=== PATIENT | male | born 1970 | race Caucasian/White ===

== ENCOUNTER 2016-12-11 18:42 | Emergency (ER) | payer MEDICARE ==
[2016-12-11] MEDS ORDERED: SODIUM CHLORIDE 0.9% 1,000 ML IV STA (19:37)
[2016-12-11] MEDS ORDERED: ONDANSETRON 4 MG/2 ML VIAL IVP STA (19:37)
[2016-12-11 19:41] VITALS: RESP 16
[2016-12-11 20:25] LABS: Basophils % (A) 1 %; CH 32.5; CHCM 34.7; Eosinophils # (A) 0.2 k/uL (0-0.7); Eosinophils % (A) 4 %; HDW 2.39; HGB 13.2 gm/dL (13.0-17.5); Luc # (Auto) 0.12; Luc % (Auto) 2; Lymphocytes # (A) 1.9 k/uL (1.0-4.8); Lymphocytes % (A) 33 %; MCH 32.7 pg (25.0-35.0); MCHC 34.7 g/dL (31.0-37.0); MCV 94.1 fL (80.0-100.0); Mean Platelet Volume 7.4; Monocytes # (A) 0.3 k/uL (0-1.0); Monocytes % (A) 6 %; Neutrophils # (A) 3.1 k/uL (1.3-7.7); Neutrophils % (A) 55 %; RBC 4.04 m/uL (4.30-5.90); RDW 13.4 % (11.5-15.5); WBC 5.7 k/uL (3.8-10.6); WBC (Perox) 5.62
[2016-12-11 20:34] LABS: ALT 30 U/L (21-72); AST 25 U/L (17-59); Alkaline Phosphatase 74 U/L (38-126); Anion Gap 8 mmol/L; Blood Urea Nitrogen 10 mg/dL (9-20); Calcium 9.1 mg/dL (8.4-10.2); Carbon Dioxide 29 mmol/L (22-30); Chloride 104 mmol/L (98-107); Glucose 87 mg/dL (74-99); Non-African American GFR(MDRD) >60 (>60 ml/min/1.73 sqM); Potassium 4.4 mmol/L (3.5-5.1); Sodium 141 mmol/L (137-145); Total Bilirubin 0.4 mg/dL (0.2-1.3); Total Protein 6.7 g/dL (6.3-8.2)
[2016-12-11 20:38] LABS: INR 1.1 (<1.2); Partial Thromboplastin Time 26.5 sec (22.0-30.0); Prothrombin Time 10.7 sec (9.0-12.0)
--- NOTE | 2016-12-11 20:43 | CT ---
EXAMINATION TYPE: CT brain wo con DATE OF EXAM: 12/11/2016 COMPARISON: NONE HISTORY: Right sided visual disturbance CT DLP: 1180.[address] of the brain was performed. The ventricles, basal cisterns and sulci overlying the cerebral convexities demonstrate a normal appe arance. There is no evidence for intracranial hemorrhage or sulcal effacement. No mass effects are seen. Osseous calvarium is intact. If symptoms persist consider MRI as clinically warranted. IMPRESSION: 1. No acute intracranial process is seen at this time.
[2016-12-11 20:45] LABS: Creatine Kinase 57 U/L (55-170)
[2016-12-11 20:58] LABS: Creatine Kinase MB 0.6 ng/mL (0.0-2.4); Troponin I <0.012 ng/mL (0.000-0.034)
--- NOTE | 2016-12-11 21:41 | ED ---
Neuro HPI - General Chief Complaint: Neuro Symptoms/Deficit Stated Complaint: Hx TIA, FEELS LIKE HE HAD ONE LAST NIGHT Time Seen by Provider: 12/11/16 19:24 Source: patient Mode of arrival: ambulatory Limitations: no limitations - History of Present Illness Is the patient presenting with stroke symptoms?: No Last Known Well Date: 12/10/16 Last Known Well Time: 21:30 Initial Comments: TSH years old male seen Dr. Pham for ongoing care and then later he called [facility] hold him that his right eye was quite blurred and blotchy for about 4 minutes then it cleared up at that point he was told to come to the ER he does have a history of complex medical diseases. Symptoms should resolve to 4 minutes now on arrival he denies any headaches no chest pain or shortness of breath no blurred vision no slurred speech no weakness of upper or lower extremities - Related Data Home Medications: Home Medications Medication Instructions Recorded Confirmed Aspirin 81 mg PO DAILY 12/11/16 12/11/16 Baclofen [Lioresal] 10 mg PO TID 12/11/16 12/11/16 Bio-Med Cream 1 applic TOPICAL DAILY PRN 12/11/16 12/11/16 Butalb/APAP/Caff 50-325-40Mg 1 tab PO DAILY PRN 12/11/16 12/11/16 [Fioricet 50-325-40] Cholecalciferol (Vitamin D3) 4,000 unit PO DAILY 12/11/16 12/11/16 [Vitamin D3] Cyanocobalamin [Vitamin B-12 1,000 mcg SQ WE 12/11/16 12/11/16 Injection] Diazepam [Valium] 5 mg PO BID PRN 12/11/16 12/11/16 Gabapentin 1,200 mg PO HS 12/11/16 12/11/16 Gabapentin 600 mg PO BID 12/11/16 12/11/16 Lidocaine 5% Patch [Lidoderm] 1 patch TOPICAL DAILY 12/11/16 12/11/16 Metoclopramide [Reglan] 5 mg PO TID 12/11/16 12/11/16 Mirtazapine 30 mg PO HS 12/11/16 12/11/16 Morphine Sulfate ER [Ms Contin 30 mg PO TID 12/11/16 12/11/16 30Mg] Morphine Sulfate Ir [Msir] 15 mg PO DAILY PRN 12/11/16 12/11/16 Omeprazole 40 mg PO DAILY 12/11/16 12/11/16 Allergies/Adverse Reactions: Allergies Allergy/AdvReac Type Severity Reaction Status Date / Time No Known Allergies Allergy Verified 12/11/16 19:20 Review of Systems ROS Statement: Those systems with pertinent positive or pertinent negative responses have been documented in the HPI. ROS Other: All systems not noted in ROS Statement are negative. General Exam - General Exam Comments Initial Comments: General: The patient is awake and alert, in no distress, and does not appear acutely ill. GCS is 15 Skin: Skin is warm and dry and no rashes or lesions are noted. Eye: Pupils are equal, round and reactive to light, extra-ocular movements are intact; there is normal conjunctiva bilaterally. Ears, nose, mouth and throat: There are moist mucous membranes and no oral lesions. Neck: The neck is supple, there is no tenderness or JVD. Cardiovascular: There is a regular rate and rhythm. No murmur, rub or gallop is appreciated. Respiratory: To auscultation bilateral, no wheezing no rhonchi no distress respiratory hubbard noticed Gastrointestinal: Soft, non-distended, non-tender abdomen without masses or organomegaly noted. There is no rebound or guarding present. Bowel sounds are unremarkable. Back: There is no tenderness to palpation in the midline. There is no obvious deformity. Musculoskeletal: Normal ROM, no tenderness, There is no pedal edema. There is no calf tenderness or swelling. No cords were appreciated. Neurological: CN II-XII intact, Cranial nerves III through XII are intact. There are no obvious motor or sensory deficits. Coordination appears grossly intact. Speech is normal. Psychiatric: Cooperative, appropriate mood & affect, normal judgment. Limitations: no limitations Stroke MDM - Lab Data Result diagrams: 12/11/16 20:10 12/11/16 20:10 Lab Results 12/11/16 12/11/16 12/11/16 Range/Units 20:10 20:10 20:10 WBC 5.7 (3.8-10.6) k/uL RBC 4.04 L (4.30-5.90) m/uL Hgb 13.2 (13.0-17.5) gm/dL Hct 38.0 L (39.0-53.0) % MCV 94.1 (80.0-100.0) fL MCH 32.7 (25.0-35.0) pg MCHC 34.7 (31.0-37.0) g/dL RDW 13.4 (11.5-15.5) % Plt Count 217 (150-450) k/uL Neutrophils % 55 % Lymphocytes % 33 % Monocytes % 6 % Eosinophils % 4 % Basophils % 1 % Neutrophils # 3.1 (1.3-7.7) k/uL Lymphocytes # 1.9 (1.0-4.8) k/uL Monocytes # 0.3 (0-1.0) k/uL Eosinophils # 0.2 (0-0.7) k/uL Basophils # 0.0 (0-0.2) k/uL PT (9.0-12.0) sec INR (<1.2) APTT (22.0-30.0) sec Sodium 141 (137-145) mmol/L Potassium 4.4 (3.5-5.1) mmol/L Chloride 104 (98-107) mmol/L Carbon Dioxide 29 (22-30) mmol/L Anion Gap 8 mmol/L BUN 10 (9-20) mg/dL Creatinine 0.57 L (0.66-1.25) mg/dL Est GFR (MDRD) Af Amer >60 (>60 ml/min/1.73 sqM) Est GFR (MDRD) Non-Af >60 (>60 ml/min/1.73 sqM) Glucose 87 (74-99) mg/dL Calcium 9.1 (8.4-10.2) mg/dL Total Bilirubin 0.4 (0.2-1.3) mg/dL AST 25 (17-59) U/L ALT 30 (21-72) U/L Alkaline Phosphatase 74 (38-126) U/L Total Creatine Kinase 57 (55-170) U/L CK-MB (CK-2) 0.6 (0.0-2.4) ng/mL CK-MB (CK-2) Rel Index 1.1 Troponin I <0.012 (0.000-0.034) ng/mL Total Protein 6.7 (6.3-8.2) g/dL Albumin 4.1 (3.5-5.0) g/dL 12/11/17 Range/Units 20:10 WBC (3.8-10.6) k/uL RBC (4.30-5.90) m/uL Hgb (13.0-17.5) gm/dL Hct (39.0-53.0) % MCV (80.0-100.0) fL MCH (25.0-35.0) pg MCHC (31.0-37.0) g/dL RDW (11.5-15.5) % Plt Count (150-450) k/uL Neutrophils % % Lymphocytes % % Monocytes % % Eosinophils % % Basophils % % Neutrophils # (1.3-7.7) k/uL Lymphocytes # (1.0-4.8) k/uL Monocytes # (0-1.0) k/uL Eosinophils # (0-0.7) k/uL Basophils # (0-0.2) k/uL PT 10.7 (9.0-12.0) sec INR 1.1 (<1.2) APTT 26.5 (22.0-30.0) sec Sodium (137-145) mmol/L Potassium (3.5-5.1) mmol/L Chloride (98-107) mmol/L Carbon Dioxide (22-30) mmol/L Anion Gap mmol/L BUN (9-20) mg/dL Creatinine (0.66-1.25) mg/dL Est GFR (MDRD) Af Amer (>60 ml/min/1.73 sqM) Est GFR (MDRD) Non-Af (>60 ml/min/1.73 sqM) Glucose (74-99) mg/dL Calcium (8.4-10.2) mg/dL Total Bilirubin (0.2-1.3) mg/dL AST (17-59) U/L ALT (21-72) U/L Alkaline Phosphatase (38-126) U/L Total Creatine Kinase (55-170) U/L CK-MB (CK-2) (0.0-2.4) ng/mL CK-MB (CK-2) Rel Index Troponin I (0.000-0.034) ng/mL Total Protein (6.3-8.2) g/dL Albumin (3.5-5.0) g/dL Past Medical History Past Medical History: CVA/TIA Additional Past Medical History / Comment(s): chronic back pain, hernia History of Any Multi-Drug Resistant Organisms: None Reported Past Surgical History: Bariatric Surgery, Cholecystectomy, Orthopedic Surgery Past Psychological History: No Psychological Hx Reported Smoking Status: Current every day smoker Past Alcohol Use History: None Reported Past Drug Use History: Marijuana Course Vital Signs 12/11/16 12/11/16 12/11/16 18:59 19:39 20:04 Temperature 99.3 F Pulse Rate 63 77 77 Respiratory 18 16 16 Rate Blood Pressure 104/67 126/85 126/85 O2 Sat by Pulse 99 95 98 Oximetry His labs are reviewed and discussed with him his CBC, INR, compressive metabolic panel, troponin, comprehensive metabolic panel and head CT are all normal abdomen and advised him to continue sitting Dr. Pham EKG normal sinus rhythm ventricular rate is 60 AL interval is 172 QRS duration is 94 QT/QTc is 444/444 review of this EKG reveals flattening of the T-wave, no ST elevation or ST depression noticed this EKG Disposition Clinical Impression: TIA (transient ischemic attack) Disposition: HOME SELF-CARE Condition: Good Instructions: Blurred Vision (ED) Referrals: Tristen Martin MD [Primary Care Provider] - 1-2 days Edwar Ferrer MD [STAFF PHYSICIAN] - 1-2 days
[2016-12-11 23:05] VITALS: BP 118/74; PULSE 65; TEMP 98.1
--- NOTE | 2016-12-11 23:10 | XR ---
CXR 2 View INDICATION: altered mental status COMPARISON: none FINDINGS: The cardiomediastinal silhouette is within normal limits. No evidence for focal consolidation. There maybe some atelectasis at the lung bases. The bilateral costophrenic angle is not fully evaluated. Possible irregularity of the lateral right eighth rib. Degenerative changes of the thoracic spine. Questionable height loss of several vertebral bodies at the mid thoracic level and lower thoracic level. There are overlying leads limiting evaluation. IMPRESSION: 1. No evidence for focal consolidation. 2. Possible irregularity of the lateral right eighth rib. Possible height loss of several vertebral bodies at the mid to lower thoracic levels. These correlate for point tenderness
== END 2016-12-11 23:06 | disposition home or self-care (01) ==
LOC: EC 18:42
DX: G45.9 Transient cerebral ischemic attack, unspecified (principal); R40.2412 Glasgow coma scale score 13-15, at arrival to emergency department; F17.200 Nicotine dependence, unspecified, uncomplicated; Z79.82 Long term (current) use of aspirin; Z79.891 Long term (current) use of opiate analgesic; Z79.899 Other long term (current) drug therapy
CPT/HCPCS: 99284; 96374; 96361 ×2; 36415; 93005; 80053; 82550; 82553; 84484; 85025; 85610; 85730; 71020; 70450; J2405

== ENCOUNTER → 2017-03-26 | Outpatient (CLI) | payer MEDICARE ==
--- NOTE | 2017-03-26 21:56 | US ---
EXAMINATION TYPE: US carotid duplex BILAT DATE OF EXAM: 03/26/2017 COMPARISON: Prior carotid ultrasound November 13, 2012 CLINICAL HISTORY: R20.2 Parasthesia,H53.9 Visual disturbance. EXAM MEASUREMENTS: RIGHT: Peak Systolic Velocity (PSV) cm/sec ----- Right CCA: 123.7 ----- Right ICA: 116.0 ----- Right ECA: 182.6 ICA/CCA ratio: 0.9 RIGHT: End Diastole cm/sec ----- Right CCA: 25.2 ----- Right ICA: 25.4 ----- Right ECA: 15.3 LEFT: Peak Systolic Velocity (PSV) cm/sec ----- Left CCA: 118.9 ----- Left ICA: 111.7 ----- Left ECA: 84.0 ICA/CCA ratio: 0.9 LEFT: End Diastole cm/sec ----- Left CCA: 25.2 ----- Left ICA: 27.0 ----- Left ECA: 12.1 VERTEBRALS (direction of flow): Right Vertebral: Antegrade Left Vertebral: Antegrade Rhythm: Normal No significant stenosis seen, elevated right ECA velocity. Grayscale images show no significant focal plaque at carotid bulb level bilaterally. Note is made of increased peak systolic velocity bilateral common carotid arteries raising concern for underlying hyp ertension. Clinical correlation advised. IMPRESSION: No hemodynamically significant stenosis is seen in either internal carotid artery.
== END | disposition home or self-care (01) ==
LOC: RADUSWWP 15:36
PROVIDERS: ATTEND Family Medicine
DX: H53.9 Unspecified visual disturbance (principal); R20.2 Paresthesia of skin
CPT/HCPCS: 93880

== ENCOUNTER → 2017-04-08 | Outpatient (CLI) | payer MEDICARE, OTHER ==
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
== END | disposition home or self-care (01) ==
LOC: SLEEP 14:08
PROVIDERS: ATTEND Internal Medicine Critical Care Medicine
DX: G47.33 Obstructive sleep apnea (adult) (pediatric) (principal); G47.10 Hypersomnia, unspecified; R53.82 Chronic fatigue, unspecified; M54.9 Dorsalgia, unspecified; G89.29 Other chronic pain; F41.9 Anxiety disorder, unspecified; F32.9 Major depressive disorder, single episode, unspecified; F17.200 Nicotine dependence, unspecified, uncomplicated; E66.01 Morbid (severe) obesity due to excess calories; Z68.29 Body mass index [BMI] 29.0-29.9, adult; Z79.899 Other long term (current) drug therapy; Z86.73 Personal history of transient ischemic attack (TIA), and cerebral infarction without residual deficits
CPT/HCPCS: 99211

== ENCOUNTER → 2017-05-21 | Outpatient (CLI) | payer MEDICAID, MEDICARE ==
[2017-05-21 08:04] LABS: Basophils % (A) 0 %; Eosinophils # (A) 0.2 k/uL (0-0.7); Eosinophils % (A) 3 %; HCT 43.9 % (39.0-53.0); HGB 14.4 gm/dL (13.0-17.5); Lymphocytes # (A) 2.1 k/uL (1.0-4.8); Lymphocytes % (A) 33 %; MCH 31.5 pg (25.0-35.0); MCHC 32.8 g/dL (31.0-37.0); MCV 95.8 fL (80.0-100.0); Mean Platelet Volume 6.6; Monocytes # (A) 0.4 k/uL (0-1.0); Monocytes % (A) 6 %; Neutrophils # (A) 3.5 k/uL (1.3-7.7); Neutrophils % (A) 55 %; Platelet Count 248 k/uL (150-450); RBC 4.59 m/uL (4.30-5.90); RDW 13.1 % (11.5-15.5); WBC 6.4 k/uL (3.8-10.6)
[2017-05-21 09:12] LABS: Erythrocyte Sedimentation Rate 8 mm/hr (0-15)
[2017-05-21 11:27] LABS: ALT 37 U/L (21-72); AST 22 U/L (17-59); Albumin 4.5 g/dL (3.5-5.0); Alkaline Phosphatase 74 U/L (38-126); Anion Gap 11 mmol/L; Blood Urea Nitrogen 15 mg/dL (9-20); Calcium 9.8 mg/dL (8.4-10.2); Carbon Dioxide 30 mmol/L (22-30); Chloride 104 mmol/L (98-107); Cholesterol 142 mg/dL (<200); Glucose 94 mg/dL (74-99); HDL Cholesterol 70 mg/dL (40-60); LDL Cholesterol,Calculated 38 mg/dL (0-99); Potassium 4.3 mmol/L (3.5-5.1); Sodium 145 mmol/L (137-145); Total Bilirubin 0.4 mg/dL (0.2-1.3); Total Protein 7.5 g/dL (6.3-8.2); Triglycerides 170 mg/dL (<150)
[2017-05-21 11:43] LABS: T4, Free (Free Thyroxine) 1.04 ng/dL (0.78-2.19)
== END | disposition home or self-care (01) ==
LOC: LABWHC1 07:29
PROVIDERS: ATTEND Physician Assistant
DX: H54.7 Unspecified visual loss (principal); G45.9 Transient cerebral ischemic attack, unspecified; G62.9 Polyneuropathy, unspecified
CPT/HCPCS: 36415; 80053; 80061; 82607; 84439; 84443; 84481; 85025; 85652

== ENCOUNTER → 2017-05-23 | Outpatient (CLI) | payer MEDICAID, MEDICARE, OTHER ==
--- NOTE | 2017-05-25 13:13 | MR ---
EXAMINATION TYPE: MR brain/lspine wo con DATE OF EXAM: 05/23/2017 COMPARISON: Prior CT brain December 11, 2016. CT lumbar spine February 02, 2010 HISTORY: Vision Loss, unspecified TIA, and Low Back Pain per order. Temporary loss of vision right ey e per patient. Ongoing chronic back pain for 20+ years per patient. TECHNIQUE: Multiplanar, multisequence imaging of the lumbar spine, brain and brainstem are all perfor med without IV contrast. FINDINGS: BRAIN: Diffusion weighted images demonstrate no evidence of a recent infarct or other diffusion abnormality. There is no extraaxial fluid collection or significant white matter signal abnormality. The ventricu lar system and cisternal spaces are normal in size and appearance. The brain volume is age appropria te. Midline structures demonstrate normal morphology. The craniocervical junction appears within normal limits. Normal vascular flow voids are present. There is some prominence of tiny vessels at level of foramen magnum of uncertain etiology or significance. Tortuous course to distal vertebral arteries is noted. There is mild mucosal thickening bilateral maxillary sinuses with mucous retention cysts or p olyps in the inferior left maxillary sinus. Remainder paranasal sinuses are clear. The globes are int act bilaterally. IMPRESSION: No significant finding is seen to account for patient's symptoms. Some chronic inferior m axillary sinus disease is incidentally noted. L-SPINE: TECHNIQUE: Multiplanar, multisequence imaging of the lumbar spine is performed without IV contrast. FINDINGS: There is slight dextroconvex scoliotic positioning centered in mid lumbar spine redemonstra cecilia. Sagittal images of the lumbar spine show vertebral body heights to appear satisfactory. There is multilevel disc desiccation with multilevel moderate to advanced disc space narrowing. There is adva nced disc space narrowing L4-L5 level with heterogeneous Modic type II degenerative change centered i n the posterior endplate with probable additional hemangioma involving the posterior at L4 vertebra n oted . No large posterior disc herniations are seen on sagittal images. There is fairly moderate mult ilevel anterior spurring. The conus medullaris is normal in position and signal ending at L1-L2 disc space level. The bone marrow signal intensity is overall heterogeneous. Axial images at T12-L1 levels show [id number] broad disc bulge mildly effacing the anterior the nhi sac, bilateral neural foramina are patent. Axial images at L1-L2 level shows mild facet degenerative changes bilaterally. Spinal canal is preser ayanna. Bilateral neural foramina are patent. Axial images at L2-L3 level show moderate broad-based posterior disc protrusion effaces the anterior thecal sac. There is mild facet degenerative changes bilaterally effacing posterior lateral thecal sa c. There is mild bilateral anterior inferior neural foraminal narrowing at this level identified. Axial images at the L3-L4 level show posterior spur disc complex effacing the anterior thecal sac. Th ere is mild/moderate facet degenerative changes bilaterally effacing the posterior lateral thecal sac on axial image 17. There is mild to moderate left greater than right anterior inferior neural forami nal narrowing noted. Axial images at L4-L5 level shows moderate facet degenerative changes bilaterally. There is broad-bas ed posterior spur disc complex effacing the anterior thecal sac. There is moderate left and mild righ t-sided neural foraminal narrowing at this level identified. Encroachment on the inferior margin left L4 nerve is still present sagittal image 4 and axial image 11. Axial images at L5-S1 level shows moderate facet degenerative changes bilaterally. There is broad dis c bulging seen. Spinal canal is preserved. There is moderate bilateral neural foraminal narrowing wit h encroachment on both L5 nerves felt present on sagittal images 13 and 4 respectively and axial imag e 5. No suspicious retroperitoneal findings are seen. IMPRESSION: Moderate to advanced multilevel degenerative changes in the lumbar spine quite pronounced for patient's age with some progression from prior CT noted. Most prominent findings are noted lower lumbar levels L4-L5 and L5-S1 levels as detailed above.
== END | disposition home or self-care (01) ==
LOC: RADMRIMAIN 15:14
PROVIDERS: ATTEND Psychiatry & Neurology Neurology
DX: M47.816 Spondylosis without myelopathy or radiculopathy, lumbar region (principal); G45.9 Transient cerebral ischemic attack, unspecified; H54.7 Unspecified visual loss
CPT/HCPCS: 70551; 72148

== ENCOUNTER 2017-05-27 08:59 | Day surgery (SDC) | payer MEDICARE ==
[2017-05-27 09:14] VITALS: TEMP 98
[2017-05-27] MEDS ORDERED: fentaNYL (PF) 50 MCG/ML 2 ML AMP ONE (09:37)
[2017-05-27] MEDS ORDERED: MIDAZOLAM 2 MG/2 ML VIAL ONE (09:37)
[2017-05-27] MEDS: BENZOCAINE SPRAY 1 SPRAY CAN MUCOUS MEM ONE ×2 (09:43→09:47)
[2017-05-27] MEDS ORDERED: IV FLUID CONTINUATION 1,000 ML IV ONE (09:45)
[2017-05-27] MEDS ORDERED: MIDAZOLAM 2 MG/2 ML VIAL IVP ONE (09:47)
[2017-05-27] MEDS ORDERED: fentaNYL (PF) 50 MCG/ML 2 ML AMP IVP ONE (09:47)
[2017-05-27] MEDS ORDERED: SODIUM CHLORIDE 0.9% 1,000 ML IV SCH (10:00)
[2017-05-27 10:14] VITALS: RESP 16
[2017-05-27 11:06] VITALS: BP 122/70; PULSE 62
--- NOTE | 2017-05-27 11:20 | ECHOT ---
TRANSESOPHAGEAL ECHOCARDIOGRAM REFERRING PHYSICIAN: Dr. Pham. INDICATION: Recurrent episodes of TIA. PROCEDURE NOTE: After obtaining informed consent, transesophageal echocardiogram was performed in left lateral position using an Omni plane probe. Local and IV sedation were obtained using Xylocaine spray, 2 mg of Versed and fentanyl. The patient tolerated the procedure well without any obvious immediate complications. Patient received moderate conscious sedation. Total sedation time was 15 minutes. FINDINGS: 1. There is no intracardiac thrombus within the left atrial appendage, left atrium, right atrium, right ventricle or left ventricle. 2. Left ventricle has normal size and systolic function with an ejection fraction of 60%. 3. Left atrium appears mildly enlarged. 4. Right atrium and right ventricle seen within normal limits. 5. Mitral valve is anatomically normal. There is no evidence of mitral stenosis or regurgitation. 6. Aortic valve is a 3-leaflet valve. There is no evidence of aortic stenosis or regurgitation. 7. Tricuspid valve shows mild tricuspid regurgitation. 8. Aorta shows mild atherosclerotic changes. 9. Interatrial septum: There is no evidence of left to right shunt by color-flow Doppler or [id number] shunt by agitated saline contrast study. CONCLUSIONS: 1. No intracardiac thrombus. 2. Normal left ventricular function. 3. No evidence of shunting across the interatrial septum. PLAN: The patient will follow up with me over the next several weeks and will undergo a 24- hour Holter through my office to see if he is having any cardiac arrhythmia to explain his TIA episodes. MMODL / IJN: [id number] /
== END 2017-05-27 11:10 | disposition home or self-care (01) ==
LOC: CATHCVL 08:59
PROVIDERS: ATTEND Internal Medicine Cardiovascular Disease
DX: I07.1 Rheumatic tricuspid insufficiency (principal); I70.0 Atherosclerosis of aorta; Z86.73 Personal history of transient ischemic attack (TIA), and cerebral infarction without residual deficits; G89.4 Chronic pain syndrome; G56.03 Carpal tunnel syndrome, bilateral upper limbs; M47.816 Spondylosis without myelopathy or radiculopathy, lumbar region; M54.2 Cervicalgia; G57.10 Meralgia paresthetica, unspecified lower limb; M51.16 Intervertebral disc disorders with radiculopathy, lumbar region; M48.061 Spinal stenosis, lumbar region without neurogenic claudication; M51.24 Other intervertebral disc displacement, thoracic region; F17.200 Nicotine dependence, unspecified, uncomplicated; M62.838 Other muscle spasm; F32.9 Major depressive disorder, single episode, unspecified; F41.1 Generalized anxiety disorder; M47.817 Spondylosis without myelopathy or radiculopathy, lumbosacral region; I10 Essential (primary) hypertension; G47.33 Obstructive sleep apnea (adult) (pediatric); G56.20 Lesion of ulnar nerve, unspecified upper limb; G60.8 Other hereditary and idiopathic neuropathies; Z99.89 Dependence on other enabling machines and devices; G25.81 Restless legs syndrome; G47.00 Insomnia, unspecified; E66.9 Obesity, unspecified; Z68.27 Body mass index [BMI] 27.0-27.9, adult; Z98.84 Bariatric surgery status; Z82.49 Family history of ischemic heart disease and other diseases of the circulatory system; Z79.891 Long term (current) use of opiate analgesic; Z79.899 Other long term (current) drug therapy
CPT/HCPCS: 93312; 93320; 93325; J2250; J3010

== ENCOUNTER 2017-07-18 12:45 | Emergency (ER) | payer MEDICAID, MEDICARE ==
[2017-07-18 13:11] VITALS: TEMP 98.9
[2017-07-18] MEDS ORDERED: SODIUM CHLORIDE 0.9% 1,000 ML IV STA (13:25)
--- NOTE | 2017-07-18 13:29 | ED ---
General Adult HPI - General Chief complaint: Neuro Symptoms/Deficit Stated complaint: Vision Loss Time Seen by Provider: 07/18/17 13:23 Source: patient, RN notes reviewed, old records reviewed Mode of arrival: ambulatory Limitations: no limitations - History of Present Illness Initial comments: This is a 1-year-old male to the ER for evaluation. Significant presenting for evaluation regarding neurological complaint. Patient has history of similar events. Patient was seen by family doctor yesterday for no Stated complaint. He had an episode of loss of vision. Patient had multiple imaging regarding loss of vision with no significant findings. Patient denies complaints at this time - Related Data Home Medications Medication Instructions Recorded Confirmed Baclofen [Lioresal] 10 mg PO TID PRN 12/11/16 07/18/17 Bio-Med Cream 1 applic TOPICAL DAILY PRN 12/11/16 07/18/17 Butalb/APAP/Caff 50-325-40Mg 1 tab PO DAILY PRN 12/11/16 07/18/17 [Fioricet 50-325-40] Cholecalciferol (Vitamin D3) 4,000 unit PO DAILY 12/11/16 07/18/17 [Vitamin D3] Lidocaine 5% Patch [Lidoderm] 1 patch TOPICAL DAILY 12/11/16 07/18/17 Mirtazapine 30 mg PO HS 12/11/16 07/18/17 Morphine Sulfate ER [Ms Contin 30 mg PO TID 12/11/16 07/18/17 30Mg] Morphine Sulfate Ir [Msir] 15 mg PO DAILY PRN 12/11/16 07/18/17 Omeprazole 40 mg PO DAILY 12/11/16 07/18/17 Atorvastatin [Lipitor] 10 mg PO DAILY 05/22/17 07/18/17 Cyanocobalamin (Vitamin B-12) 2,000 mcg PO DAILY 05/22/17 07/18/17 [Vitamin B-12] predniSONE 5 mg PO DAILY 05/22/17 07/18/17 Calcium Carbonate/Vitamin D3 1 cap PO DAILY 07/18/17 07/18/17 [Calcium 600-Vit D3 2,500 Sftgl] Citalopram Hydrobromide [CeleXA] 20 mg PO DAILY 07/18/17 07/18/17 LORazepam [Ativan] 0.5 mg PO QID PRN 07/18/17 07/18/17 Magnesium Oxide [Mag-Ox] 400 mg PO DAILY 07/18/17 07/18/17 Multivitamins, Thera [Multivitamin 1 tab PO DAILY 07/18/17 07/18/17 (formulary)] Allergies Allergy/AdvReac Type Severity Reaction Status Date / Time No Known Allergies Allergy Verified 07/18/17 13:39 Review of Systems ROS Statement: Those systems with pertinent positive or pertinent negative responses have been documented in the HPI. ROS Other: All systems not noted in ROS Statement are negative. Past Medical History Past Medical History: CVA/TIA, Musculoskeletal Disorder Additional Past Medical History / Comment(s): chronic back pain, has had TIA's for about 20 years; hernia History of Any Multi-Drug Resistant Organisms: None Reported Past Surgical History: Bariatric Surgery, Cholecystectomy, Orthopedic Surgery Additional Past Surgical History / Comment(s): R hand surgery; gastric sleeve Past Anesthesia/Blood Transfusion Reactions: No Reported Reaction Past Psychological History: Anxiety Smoking Status: Current every day smoker Past Alcohol Use History: None Reported Past Drug Use History: None Reported - Past Family History Mother Family Medical History: No Reported History General Exam - General Exam Comments Initial Comments: NIH of 0 Limitations: no limitations General appearance: alert, in no apparent distress Head exam: Present: atraumatic, normocephalic, normal inspection Eye exam: Present: normal appearance, PERRL, EOMI. Absent: scleral icterus, conjunctival injection, periorbital swelling ENT exam: Present: normal exam, mucous membranes moist Neck exam: Present: normal inspection. Absent: tenderness, meningismus, lymphadenopathy Respiratory exam: Present: normal lung sounds bilaterally. Absent: respiratory distress, wheezes, rales, rhonchi, stridor Cardiovascular Exam: Present: regular rate, normal rhythm, normal heart sounds. Absent: systolic murmur, diastolic murmur, rubs, gallop, clicks GI/Abdominal exam: Present: soft, normal bowel sounds. Absent: distended, tenderness, guarding, rebound, rigid Extremities exam: Present: normal inspection, full ROM, normal capillary refill. Absent: tenderness, pedal edema, joint swelling, calf tenderness Back exam: Present: normal inspection Neurological exam: Present: alert, oriented X3, CN II-XII intact Psychiatric exam: Present: normal affect, normal mood Skin exam: Present: warm, dry, intact, normal color. Absent: rash Course Vital Signs 07/18/17 07/18/17 13:09 14:11 Temperature 98.9 F Pulse Rate 86 80 Respiratory 18 16 Rate Blood Pressure 118/72 125/76 O2 Sat by Pulse 96 97 Oximetry - Reevaluation(s) Reevaluation #1: 07/18/17 14:29 Patient states he would like to be discharged home EKG Findings - EKG Comments: EKG Findings:: EKG shows normal sinus rhythm at 75, IN 164, QRS 90, QTc 462 Medical Decision Making - Medical Decision Making 46 male the ER for evaluation of this in the right eye, resolved resolved last night. 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 - Lab Data Result diagrams: 07/18/17 13:40 07/18/17 13:40 Lab Results 07/18/17 07/18/17 07/18/17 Range/Units 13:40 13:40 13:40 WBC 5.8 (3.8-10.6) k/uL RBC 4.09 L (4.30-5.90) m/uL Hgb 12.9 L (13.0-17.5) gm/dL Hct 38.4 L (39.0-53.0) % MCV 93.9 (80.0-100.0) fL MCH 31.6 (25.0-35.0) pg MCHC 33.7 (31.0-37.0) g/dL RDW 12.7 (11.5-15.5) % Plt Count 219 (150-450) k/uL Neutrophils % 73 % Lymphocytes % 19 % Monocytes % 5 % Eosinophils % 2 % Basophils % 0 % Neutrophils # 4.2 (1.3-7.7) k/uL Lymphocytes # 1.1 (1.0-4.8) k/uL Monocytes # 0.3 (0-1.0) k/uL Eosinophils # 0.1 (0-0.7) k/uL Basophils # 0.0 (0-0.2) k/uL PT (9.0-12.0) sec INR (<1.2) APTT (22.0-30.0) sec Sodium 141 (137-145) mmol/L Potassium 4.4 (3.5-5.1) mmol/L Chloride 104 (98-107) mmol/L Carbon Dioxide 29 (22-30) mmol/L Anion Gap 8 mmol/L BUN 15 (9-20) mg/dL Creatinine 0.60 L (0.66-1.25) mg/dL Est GFR (MDRD) Af Amer >60 (>60 ml/min/1.73 sqM) Est GFR (MDRD) Non-Af >60 (>60 ml/min/1.73 sqM) Glucose 98 (74-99) mg/dL Calcium 9.3 (8.4-10.2) mg/dL Phosphorus 3.9 (2.5-4.5) mg/dL Magnesium 1.9 (1.6-2.3) mg/dL Total Bilirubin 0.2 (0.2-1.3) mg/dL AST 21 (17-59) U/L ALT 21 (21-72) U/L Alkaline Phosphatase 72 (38-126) U/L Total Creatine Kinase 57 (55-170) U/L Total Protein 6.8 (6.3-8.2) g/dL Albumin 4.2 (3.5-5.0) g/dL 07/18/17 Range/Units 13:40 WBC (3.8-10.6) k/uL RBC (4.30-5.90) m/uL Hgb (13.0-17.5) gm/dL Hct (39.0-53.0) % MCV (80.0-100.0) fL MCH (25.0-35.0) pg MCHC (31.0-37.0) g/dL RDW (11.5-15.5) % Plt Count (150-450) k/uL Neutrophils % % Lymphocytes % % Monocytes % % Eosinophils % % Basophils % % Neutrophils # (1.3-7.7) k/uL Lymphocytes # (1.0-4.8) k/uL Monocytes # (0-1.0) k/uL Eosinophils # (0-0.7) k/uL Basophils # (0-0.2) k/uL PT 10.1 (9.0-12.0) sec INR 1.0 (<1.2) APTT 24.6 (22.0-30.0) sec Sodium (137-145) mmol/L Potassium (3.5-5.1) mmol/L Chloride (98-107) mmol/L Carbon Dioxide (22-30) mmol/L Anion Gap mmol/L BUN (9-20) mg/dL Creatinine (0.66-1.25) mg/dL Est GFR (MDRD) Af Amer (>60 ml/min/1.73 sqM) Est GFR (MDRD) Non-Af (>60 ml/min/1.73 sqM) Glucose (74-99) mg/dL Calcium (8.4-10.2) mg/dL Phosphorus (2.5-4.5) mg/dL Magnesium (1.6-2.3) mg/dL Total Bilirubin (0.2-1.3) mg/dL AST (17-59) U/L ALT (21-72) U/L Alkaline Phosphatase (38-126) U/L Total Creatine Kinase (55-170) U/L Total Protein (6.3-8.2) g/dL Albumin (3.5-5.0) g/dL - Radiology Data Radiology results: report reviewed (CT brain is negative for acute disease), image reviewed Disposition Clinical Impression: Transient cerebral ischemia Disposition: HOME SELF-CARE Condition: Good Instructions: Transient Ischemic Attack (ED) Referrals: Tristen Martin MD [Primary Care Provider] - 1-2 days
[2017-07-18 14:02] LABS: Basophils % (A) 0 %; Eosinophils # (A) 0.1 k/uL (0-0.7); Eosinophils % (A) 2 %; HCT 38.4 % (39.0-53.0); HGB 12.9 gm/dL (13.0-17.5); Lymphocytes # (A) 1.1 k/uL (1.0-4.8); Lymphocytes % (A) 19 %; MCH 31.6 pg (25.0-35.0); MCHC 33.7 g/dL (31.0-37.0); MCV 93.9 fL (80.0-100.0); Mean Platelet Volume 7.3; Monocytes # (A) 0.3 k/uL (0-1.0); Monocytes % (A) 5 %; Neutrophils # (A) 4.2 k/uL (1.3-7.7); Neutrophils % (A) 73 %; Platelet Count 219 k/uL (150-450); RBC 4.09 m/uL (4.30-5.90); RDW 12.7 % (11.5-15.5); WBC 5.8 k/uL (3.8-10.6)
[2017-07-18 14:12] VITALS: BP 125/76; PULSE 80; RESP 16
--- NOTE | 2017-07-18 14:13 | CT ---
EXAMINATION TYPE: CT brain wo con DATE OF EXAM: 07/18/2017 COMPARISON: CT brain dated 12-11-2016. HISTORY: Loss of vision Rt eye. CT DLP: 1281 mGycm. Automated Exposure Control for Dose Reduction was Utilized. TECHNIQUE: CT scan of the head is performed without contrast. FINDINGS: There is no acute intracranial hemorrhage, mass effect, or midline shift identified. The ventricles and sulci are within normal limits in size. The globes are intact and the visualized sin uses are clear. IMPRESSION: No acute intracranial hemorrhage, mass effect, or midline shift is seen. No significant change from prior.
[2017-07-18 14:19] LABS: ALT 21 U/L (21-72); AST 21 U/L (17-59); Albumin 4.2 g/dL (3.5-5.0); Alkaline Phosphatase 72 U/L (38-126); Anion Gap 8 mmol/L; Blood Urea Nitrogen 15 mg/dL (9-20); Calcium 9.3 mg/dL (8.4-10.2); Carbon Dioxide 29 mmol/L (22-30); Chloride 104 mmol/L (98-107); Glucose 98 mg/dL (74-99); Partial Thromboplastin Time 24.6 sec (22.0-30.0); Phosphorus 3.9 mg/dL (2.5-4.5); Potassium 4.4 mmol/L (3.5-5.1); Prothrombin Time 10.1 sec (9.0-12.0); Sodium 141 mmol/L (137-145); Total Bilirubin 0.2 mg/dL (0.2-1.3); Total Protein 6.8 g/dL (6.3-8.2)
[2017-07-18 14:22] LABS: Creatine Kinase 57 U/L (55-170)
[2017-07-18 14:35] LABS: Creatine Kinase MB 0.6 ng/mL (0.0-2.4); Troponin I <0.012 ng/mL (0.000-0.034)
== END 2017-07-18 14:45 | disposition home or self-care (01) ==
LOC: EC 12:45
DX: G45.9 Transient cerebral ischemic attack, unspecified (principal); F17.200 Nicotine dependence, unspecified, uncomplicated; Z86.73 Personal history of transient ischemic attack (TIA), and cerebral infarction without residual deficits; Z79.891 Long term (current) use of opiate analgesic; Z79.52 Long term (current) use of systemic steroids; Z79.899 Other long term (current) drug therapy
CPT/HCPCS: 36415; 70450; 80053; 82550; 82553; 83735; 84100; 84484; 85025; 85610; 85730; 93005; 96374; 99285

== ENCOUNTER → 2017-11-04 | Outpatient (CLI) | payer MEDICAID, MEDICARE ==
[2017-11-04 09:55] LABS: ALT 26 U/L (21-72); AST 22 U/L (17-59); Cholesterol 128 mg/dL (<200); HDL Cholesterol 64 mg/dL (40-60); LDL Cholesterol,Calculated 30 mg/dL (0-99); Triglycerides 171 mg/dL (<150)
== END | disposition home or self-care (01) ==
LOC: LABWHC1 08:40
PROVIDERS: ATTEND Family Medicine
DX: E78.00 Pure hypercholesterolemia, unspecified (principal)
CPT/HCPCS: 36415; 80061; 84450; 84460

== ENCOUNTER → 2018-03-03 | Outpatient (CLI) | payer MEDICAID, MEDICARE ==
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
== END | disposition home or self-care (01) ==
LOC: RADCTMAIN 16:07
PROVIDERS: ATTEND Family Medicine
DX: M99.72 Connective tissue and disc stenosis of intervertebral foramina of thoracic region (principal); M47.814 Spondylosis without myelopathy or radiculopathy, thoracic region; M43.24 Fusion of spine, thoracic region; M48.54XA Collapsed vertebra, not elsewhere classified, thoracic region, initial encounter for fracture; M40.294 Other kyphosis, thoracic region; M46.94 Unspecified inflammatory spondylopathy, thoracic region
CPT/HCPCS: 72128

== ENCOUNTER → 2018-06-04 | Outpatient (CLI) | payer MEDICAID, MEDICARE ==
[2018-06-04 15:30] LABS: Basophils % (A) 0 %; Eosinophils # (A) 0.2 k/uL (0-0.7); Eosinophils % (A) 2 %; HCT 42.5 % (39.0-53.0); HGB 13.9 gm/dL (13.0-17.5); Lymphocytes # (A) 1.6 k/uL (1.0-4.8); Lymphocytes % (A) 20 %; MCHC 32.7 g/dL (31.0-37.0); MCV 97.8 fL (80.0-100.0); Mean Platelet Volume 6.8; Monocytes # (A) 0.3 k/uL (0-1.0); Monocytes % (A) 4 %; Neutrophils # (A) 5.5 k/uL (1.3-7.7); Neutrophils % (A) 72 %; Platelet Count 190 k/uL (150-450); RBC 4.34 m/uL (4.30-5.90); RDW 12.9 % (11.5-15.5); WBC 7.7 k/uL (3.8-10.6)
== END | disposition home or self-care (01) ==
LOC: LABWHC1 14:47
PROVIDERS: ATTEND Family Medicine
DX: N45.1 Epididymitis (principal)
CPT/HCPCS: 36415; 85025; 86140

== ENCOUNTER → 2018-10-08 | Outpatient (CLI) | payer MEDICAID, MEDICARE ==
--- NOTE | 2018-10-08 14:36 | US ---
EXAMINATION TYPE: US venous doppler duplex UE LT DATE OF EXAM: 10/08/2018 COMPARISON: NONE CLINICAL HISTORY: R22.32 Palpable mass left upper extremity. SIDE PERFORMED: Left Grayscale, color doppler, spectral doppler imaging performed of the deep veins of the left upper extr emity. There is normal flow, compressibility and vascular waveforms Left Arm: Negative for DVT IMPRESSION: No sonographic evidence of deep venous thrombosis within the left approximately. No additional images were provided at a site of a palpable abnormality.
--- NOTE | 2018-10-10 14:01 | US ---
EXAMINATION TYPE: US extremity nonvasc mass LT DATE OF EXAM: 10/08/2018 COMPARISON: NONE CLINICAL HISTORY: r22. 32 mass of upper extremity. At patients palpable area is a 4.2 x 0.4 x 1.8cm, hypoechoic, well circumscribed, peripheral vascula rity noted on color Doppler about the mass. Grayscale and color Doppler imaging performed IMPRESSION: Mass as described at the site of patient's palpable abnormality
== END ==
LOC: RADUSWWP 13:27
PROVIDERS: ATTEND Surgery
DX: R22.32 Localized swelling, mass and lump, left upper limb (principal)

== ENCOUNTER 2018-12-03 12:06 | Day surgery (SDC) | payer MEDICAID, MEDICARE ==
[2018-12-02 11:36] VITALS: BMI 28.8
[~2018-12-03 12:06] MED LIST: LACTATED RINGERS 1,000 ML IV SCH; LIDOCAINE 1% 20 ML VIAL (10MG/ML) FOR IV START INTRADERMA PRN
[2018-12-03 12:28] VITALS: TEMP 96.7
[2018-12-03] MEDS ORDERED: PROPOFOL 10 MG/ML 20 ML VIAL IV ONE (12:44)
--- NOTE | 2018-12-03 13:08 | P.OP ---
Date of Procedure: 12/03/18 Preoperative Diagnosis: Screening, rectal bleeding Postoperative Diagnosis: Diverticulosis Internal hemorrhoids Procedure(s) Performed: Colonoscopy Surgeon: Sav Rodas Pathology: none sent Condition: stable Disposition: same day Indications for Procedure: 48-year-old male initially presented to the surgery clinic with complaints of occasional rectal bleeding. He has never had a colonoscopy. He was due for a screening colonoscopy and also due to the rectal bleeding, plan was made for a colonoscopy. The patient was explained the risks, benefits and alternatives to the procedure. Operative Findings: Diverticulosis of the sigmoid colon, internal hemorrhoids, no active hemorrhage Description of Procedure: The patient was brought into the endoscopy suite. He was then placed in left lateral decubitus position and adequate sedation was achieved using conscious sedation. A digital rectal exam was performed and mild internal hemorrhoids were palpated. An endoscope was placed in the rectum and advanced to the level of the cecum as identified by landmarks including the appendix orifice and the ileocecal valve. The prep was fair with some solid stool scattered throughout the colon. The colon scope was then slowly withdrawn, examining for any mucosal abnormalities. The cecum, ascending, transverse, descending and sigmoid colon were visualized adequately. There were no large neoplastic lesions noted throughout the colon. There was no obvious evidence of polyposis throughout the colon. There was diverticulosis scattered throughout the colon, mostly within the sigmoid colon. Retroflexion was performed in the rectum and internal hemorrhoids were visible. Excess air was removed, the colonoscope withdrawn and the procedure terminated. The patient was then transferred to the recovery unit in stable condition. Repeat colonoscopy should be performed in 1-2 years due to some decreased visibility due to solid stool particles.
[2018-12-03 13:12] VITALS: RESP 16
[2018-12-03 13:30] VITALS: BP 122/69; PULSE 79
== END 2018-12-03 13:55 | disposition home or self-care (01) ==
LOC: ORWHC2ENDO 12:06
PROVIDERS: ATTEND Surgery
DX: Z12.11 Encounter for screening for malignant neoplasm of colon (principal); K64.8 Other hemorrhoids; K62.5 Hemorrhage of anus and rectum; K57.30 Diverticulosis of large intestine without perforation or abscess without bleeding; F17.210 Nicotine dependence, cigarettes, uncomplicated; J44.9 Chronic obstructive pulmonary disease, unspecified; F41.9 Anxiety disorder, unspecified; Z86.73 Personal history of transient ischemic attack (TIA), and cerebral infarction without residual deficits; Z98.84 Bariatric surgery status; Z79.899 Other long term (current) drug therapy; K21.9 Gastro-esophageal reflux disease without esophagitis; Z82.61 Family history of arthritis; Z81.1 Family history of alcohol abuse and dependence; Z82.49 Family history of ischemic heart disease and other diseases of the circulatory system; Z88.5 Allergy status to narcotic agent; Z79.891 Long term (current) use of opiate analgesic
CPT/HCPCS: J2704; G0121

== ENCOUNTER → 2019-03-05 | Outpatient (CLI) | payer MEDICAID, MEDICARE ==
--- NOTE | 2019-03-05 13:43 | US ---
"EXAMINATION TYPE: US kidneys/renal and bladder DATE OF EXAM: 03/05/2019 COMPARISON: NONE CLINICAL HISTORY: R31.9 Hematuria. Macrohematuria EXAM MEASUREMENTS: Right Kidney: 11.4 x 5.4 x 5.4 cm Left Kidney: 12.3 x 5.2 x 6.2 cm Limited visualization due to overlying bowel gas Right Kidney: Lobular contour of the right kidney. Life Consultant measures nonenlarged renal pelvis. Left Kidney: Appears lobular. Possible lower pole pedunculated hypoechoic circular mass measures 1.8 x 2.0 x 2.1 cm. This appears solid. Possible posterior cystic appearing lesion visualized = 2.0 x 1.6 x 1.7 cm-- very limited visualization due to bowel gas and scanned subcostally. Life Consultant measu res nonenlarged renal pelvis. Bladder: distended, anechoic Bilateral Jets seen There is no evidence for hydronephrosis at this point in time. No nephrolithiasis is seen. Bilateral urinary bladder jets are seen. IMPRESSION: Solid appearing left renal mass that should be considered neoplasm until proven otherwise emanating from the left kidney in the lower pole measuring 2.1 cm. Three-phase CT abdomen with contr ast is recommended for full evaluation. A Yellow level critical message alert has been initiated for Tristen Martin MD via the [employer] 36 0 | Critical Results System on 03/05/2019 1:40 PM. This message alert has been sent to Tristen Martin MD via the preferences provided by the clinician for the receipt of Radiology Critical Findings. [facility] [address] [facility] [place] [id number]."
== END | disposition home or self-care (01) ==
LOC: RADUSWWP 12:17
PROVIDERS: ATTEND Family Medicine
DX: N28.89 Other specified disorders of kidney and ureter (principal)
CPT/HCPCS: 76770

== ENCOUNTER → 2019-03-08 | Outpatient (CLI) | payer MEDICAID, MEDICARE ==
[2019-03-08 14:04] LABS: Anisocytosis Slight; Basophils % (A) 0 %; Eosinophils # (A) 0.2 k/uL (0-0.7); Eosinophils % (A) 3 %; HCT 36.2 % (39.0-53.0); HGB 12.1 gm/dL (13.0-17.5); Lymphocytes % (A) 33 %; MCH 31.3 pg (25.0-35.0); MCHC 33.3 g/dL (31.0-37.0); MCV 93.9 fL (80.0-100.0); Monocytes # (A) 0.3 k/uL (0-1.0); Monocytes % (A) 5 %; Neutrophils # (A) 3.3 k/uL (1.3-7.7); Neutrophils % (A) 57 %; Platelet Count 308 k/uL (150-450); RBC 3.85 m/uL (4.30-5.90); RDW 17.4 % (11.5-15.5); WBC 5.9 k/uL (3.8-10.6)
[2019-03-08 14:08] LABS: ALT 19 U/L (21-72); AST 27 U/L (17-59); African American GFR (CKD) >90 (>60 ml/min/1.73 sqM); Albumin 4.1 g/dL (3.5-5.0); Alkaline Phosphatase 51 U/L (38-126); Anion Gap 8 mmol/L; Blood Urea Nitrogen 14 mg/dL (9-20); Calcium 9.2 mg/dL (8.4-10.2); Carbon Dioxide 29 mmol/L (22-30); Chloride 106 mmol/L (98-107); Glucose 87 mg/dL (74-99); Non-African American GFR(CKD) >90 (>60 ml/min/1.73 sqM); Potassium 4.1 mmol/L (3.5-5.1); Sodium 143 mmol/L (137-145); Total Bilirubin 0.4 mg/dL (0.2-1.3); Total Protein 6.7 g/dL (6.3-8.2)
[2019-03-08 14:16] LABS: Appearance,Urine Clear (Clear); Bilirubin,Urine Negative (Negative); Blood,Urine Negative (Negative); Color,Urine Yellow; Glucose,Urine (UA) Negative (Negative); Ketones,Urine Negative (Negative); Leukocyte Esterase,Urine Negative (Negative); Nitrite,Urine Negative (Negative); Protein,Urine Negative (Negative); Specific Gravity,Urine 1.017 (1.001-1.035)
--- NOTE | 2019-03-08 16:03 | CT ---
EXAMINATION TYPE: CT abdomen wo/w con DATE OF EXAM: 03/08/2019 COMPARISON: 03/05/2019 ultrasound kidneys INDICATION: Renal mass DLP: 1287 mGycm, Automated exposure control for dose reduction was used. CONTRAST: 100 mL of Isovue 300. Study performed with Oral Contrast TECHNIQUE: Axial images were obtained from above the diaphragm to the pubic rami in the axial plane a t 5 mm thick sections. Reconstructed images are reviewed on the computer in the coronal plane. FINDINGS: Limited CT sections are obtained the lung bases. The lung bases are clear. There is a small hiatal hernia. CT ABDOMEN: Liver: Normal Spleen: Normal Pancreas: Normal Adrenal glands: The adrenal glands are normal. Gallbladder: Surgically absent Kidneys: No masses are evident. No hydronephrosis is present. Small cortical renal cysts on the lef t kidney. Delayed images were obtained through the kidneys, which remain unremarkable. Aorta: Vascular calcification is within the aorta. Inferior vena cava: Normal. Loops of bowel within the abdomen are normal. There are loops of bowel which are incompletely dis tended or lack oral contrast limiting their evaluation. IMPRESSIONS: 1. 1. No definite renal mass evident. Small cortical renal cyst is present on the anterior lateral lower pole left kidney. Additional bilateral cortical renal cysts are present. No discrete mass is identif ied
== END ==
LOC: RADXRMAIN 12:45
PROVIDERS: ATTEND Family Medicine
DX: N28.1 Cyst of kidney, acquired (principal); N28.89 Other specified disorders of kidney and ureter; F41.9 Anxiety disorder, unspecified
CPT/HCPCS: 80053; 84443; 85025; 81003; 74170; 36415; Q9967; 88108

== ENCOUNTER → 2019-11-11 | Outpatient (CLI) | payer MEDICARE, OTHER ==
[2019-11-11 14:51] LABS: Basophils % (A) 0 %; Eosinophils # (A) 0.2 k/uL (0-0.7); Eosinophils % (A) 3 %; HCT 40.1 % (39.0-53.0); HGB 13.1 gm/dL (13.0-17.5); Lymphocytes # (A) 1.7 k/uL (1.0-4.8); Lymphocytes % (A) 30 %; MCH 31.1 pg (25.0-35.0); MCHC 32.7 g/dL (31.0-37.0); MCV 95.4 fL (80.0-100.0); Mean Platelet Volume 7.8; Monocytes # (A) 0.3 k/uL (0-1.0); Monocytes % (A) 5 %; Neutrophils # (A) 3.3 k/uL (1.3-7.7); Neutrophils % (A) 60 %; Platelet Count 197 k/uL (150-450); RDW 12.7 % (11.5-15.5); WBC 5.5 k/uL (3.8-10.6)
[2019-11-11 18:43] LABS: African American GFR (CKD) 134.9 (60.0-200.0); Albumin 4.4 g/dL (3.80-4.90); Albumin/Globulin Ratio 1.91 (1.60-3.17); Anion Gap 8.1 mmol/L (4.00-12.00); BUN/Creat Ratio 18.33 Ratio (12.00-20.00); Carbon Dioxide 27.9 mmol/L (21.6-31.8); Chol/HDL Ratio 1.71; Globulin 2.3 g/dL (1.6-3.3); Non-African American GFR(CKD) 116.4 (60.0-200.0); Potassium 3.6 mmol/L (3.5-5.5); Total Bilirubin 0.4 mg/dL (0.3-1.2); Total Protein 6.7 g/dL (6.2-8.2)
== END | disposition home or self-care (01) ==
LOC: LABWHC1 14:27
PROVIDERS: ATTEND Family Medicine
DX: Z12.5 Encounter for screening for malignant neoplasm of prostate (principal); E55.9 Vitamin D deficiency, unspecified; E78.00 Pure hypercholesterolemia, unspecified; E05.90 Thyrotoxicosis, unspecified without thyrotoxic crisis or storm; I10 Essential (primary) hypertension
CPT/HCPCS: 36415; 80053; 80061; 82306; 84153; 84443; 85025

== ENCOUNTER 2020-03-14 11:00 | Emergency (ER) | payer MEDICARE, OTHER ==
[2020-03-14 11:07] VITALS: RESP 18
[2020-03-14] MEDS ORDERED: SODIUM CHLORIDE 0.9% 1,000 ML IV STA (11:25)
[2020-03-14 11:45] LABS: Basophils % (A) 0 %; Eosinophils # (A) 0.1 k/uL (0-0.7); Eosinophils % (A) 1 %; HCT 38.4 % (39.0-53.0); HGB 12.8 gm/dL (13.0-17.5); Lymphocytes # (A) 0.7 k/uL (1.0-4.8); Lymphocytes % (A) 13 %; MCH 32.1 pg (25.0-35.0); MCHC 33.3 g/dL (31.0-37.0); MCV 96.5 fL (80.0-100.0); Mean Platelet Volume 7.1; Monocytes # (A) 0.2 k/uL (0-1.0); Monocytes % (A) 4 %; Neutrophils # (A) 4.3 k/uL (1.3-7.7); Neutrophils % (A) 81 %; Platelet Count 205 k/uL (150-450); RBC 3.98 m/uL (4.30-5.90); WBC 5.3 k/uL (3.8-10.6)
--- NOTE | 2020-03-14 11:53 | ED ---
General Adult HPI - General Chief complaint: Weakness Stated complaint: weakness Time Seen by Provider: 03/14/20 11:10 Source: patient, family, RN notes reviewed Mode of arrival: ambulatory Limitations: no limitations - History of Present Illness Initial comments: 49-year-old male with a past medical history of TIA, chronic back pain, arfid (food avoidance) presents to the emergency room for a chief complaint of weakness. Patient and report that he has been avoidance of food for about 4-1/2 years. This started after bariatric surgery. States that he has seen several psychiatrists and different specialists for this. He is in counseling. Patient was being seen at [facility] and they wanted to do a feeding tube however patient refused. states they've been trying to get him to agree but he will not. reports that he is eating less and less. She reports he will sometimes drink his protein shakes but would not do so today. She is concerned this is causing him to become more weak. Patient has no other complaints at this time including shortness of breath, chest pain, abdominal pain, nausea or vomiting, headache, or visual changes. - Related Data Home Medications Medication Instructions Recorded Confirmed Baclofen [Lioresal] 10 mg PO TID PRN 12/11/16 12/02/18 Bio-Med Cream 1 applic TOPICAL DAILY PRN 12/11/16 12/02/18 Butalb/APAP/Caff 50-325-40Mg 1 tab PO DAILY PRN 12/11/16 12/02/18 [Fioricet 50-325-40] Cholecalciferol (Vitamin D3) 4,000 unit PO DAILY 12/11/16 12/02/18 [Vitamin D3] Lidocaine 5% Patch [Lidoderm 5% 1 patch TOPICAL DAILY 12/11/16 12/02/18 Patch] Morphine Sulfate ER [Ms Contin] 45 mg PO BID 12/11/16 12/02/18 Omeprazole 20 mg PO DAILY 12/11/16 12/02/18 Atorvastatin [Lipitor] 10 mg PO DAILY 05/22/17 12/02/18 Cyanocobalamin (Vitamin B-12) 2,000 mcg PO DAILY 05/22/17 12/02/18 [Vitamin B-12] predniSONE 5 mg PO DAILY 05/22/17 12/02/18 Calcium Carbonate/Vitamin D3 1 cap PO DAILY 07/18/17 12/02/18 [Calcium 600-Vit D3 2,500 Sftgl] LORazepam [Ativan] 1 mg PO TID 07/18/17 12/02/18 Magnesium Oxide [Mag-Ox] 400 mg PO DAILY 07/18/17 12/02/18 Multivitamins, Thera [Multivitamin 1 tab PO DAILY 07/18/17 12/02/18 (formulary)] Allergies Allergy/AdvReac Type Severity Reaction Status Date / Time No Known Allergies Allergy Verified 03/14/20 11:07 Review of Systems ROS Statement: Those systems with pertinent positive or pertinent negative responses have been documented in the HPI. ROS Other: All systems not noted in ROS Statement are negative. Past Medical History Past Medical History: CVA/TIA, Musculoskeletal Disorder Additional Past Medical History / Comment(s): chronic back pain, has had TIA's for about 20 years; hernia, arfid-(avoidance of food) History of Any Multi-Drug Resistant Organisms: None Reported Past Surgical History: Bariatric Surgery, Cholecystectomy, Orthopedic Surgery Additional Past Surgical History / Comment(s): R hand surgery; gastric sleeve Past Anesthesia/Blood Transfusion Reactions: No Reported Reaction Past Psychological History: Anxiety, Depression Smoking Status: Current every day smoker Past Alcohol Use History: None Reported Past Drug Use History: Marijuana - Past Family History Mother Family Medical History: No Reported History General Exam Limitations: no limitations General appearance: alert, cachectic Head exam: Present: atraumatic, normocephalic, normal inspection Eye exam: Present: normal appearance, PERRL, EOMI. Absent: scleral icterus, conjunctival injection, periorbital swelling ENT exam: Present: normal exam, mucous membranes moist Neck exam: Present: normal inspection, full ROM. Absent: tenderness, meningismus, lymphadenopathy Respiratory exam: Present: normal lung sounds bilaterally. Absent: respiratory distress, wheezes, rales, rhonchi, stridor Cardiovascular Exam: Present: regular rate, normal rhythm, normal heart sounds. Absent: systolic murmur, diastolic murmur, rubs, gallop, clicks GI/Abdominal exam: Present: soft, normal bowel sounds. Absent: distended, tenderness, guarding, rebound, rigid Course Vital Signs 03/14/20 11:01 Temperature 98 F Pulse Rate 80 Respiratory 18 Rate Blood Pressure 115/70 O2 Sat by Pulse 95 Oximetry Medical Decision Making - Medical Decision Making HPI and physical exam as documented. Patient does appear cachectic. I asked what the goals for today's visit are and and patient are not sure what their goals are but want him to get help. I did check basic labs on patient. Hemoglobin stable at 12.8. CMP is unremarkable. Kidney function WNL. Patient was rehydrated with a liter of fluids. At this time I discussed that I am not able to do much else [facility] to assist him. I discussed that they need to follow back up with Dr. Martin and his specialists. Discussed that if anything is worsening to return to the ER.I discussed this case with attending Dr. Oswald who agrees with this assessment and treatment plan. - Lab Data Result diagrams: 03/14/20 11:27 03/14/20 11: Lab Results 03/14/20 03/14/20 Range/Units 11:27 11:27 WBC 5.3 (3.8-10.6) k/uL RBC 3.98 L (4.30-5.90) m/uL Hgb 12.8 L (13.0-17.5) gm/dL Hct 38.4 L (39.0-53.0) % MCV 96.5 (80.0-100.0) fL MCH 32.1 (25.0-35.0) pg MCHC 33.3 (31.0-37.0) g/dL RDW 13.0 (11.5-15.5) % Plt Count 205 (150-450) k/uL Neutrophils % 81 % Lymphocytes % 13 % Monocytes % 4 % Eosinophils % 1 % Basophils % 0 % Neutrophils # 4.3 (1.3-7.7) k/uL Lymphocytes # 0.7 L (1.0-4.8) k/uL Monocytes # 0.2 (0-1.0) k/uL Eosinophils # 0.1 (0-0.7) k/uL Basophils # 0.0 (0-0.2) k/uL Sodium 140 (137-145) mmol/L Potassium 3.8 (3.5-5.1) mmol/L Chloride 107 (98-107) mmol/L Carbon Dioxide 28 (22-30) mmol/L Anion Gap 5 mmol/L BUN 8 L (9-20) mg/dL Creatinine 0.50 L (0.66-1.25) mg/dL Est GFR (CKD-EPI)AfAm >90 (>60 ml/min/1.73 sqM) Est GFR (CKD-EPI)NonAf >90 (>60 ml/min/1.73 sqM) Glucose 102 H (74-99) mg/dL Calcium 8.8 (8.4-10.2) mg/dL Magnesium 1.8 (1.6-2.3) mg/dL Total Bilirubin 0.5 (0.2-1.3) mg/dL AST 27 (17-59) U/L ALT 14 (4-49) U/L Alkaline Phosphatase 81 (38-126) U/L Total Protein 6.6 (6.3-8.2) g/dL Albumin 3.9 (3.5-5.0) g/dL Disposition Clinical Impression: Cachexia Disposition: HOME SELF-CARE Condition: Good Instructions (If sedation given, give patient instructions): Malnutrition (DC) Additional Instructions: Please follow up with Dr. Martin and let him know your condition is not improving. You should see the specialists at [facility] again. Continue your counseling. Return to the emergency room for any worsening symptoms. Is patient prescribed a controlled substance at d/c from ED?: No Referrals: Tristen Martin MD [Primary Care Provider] - 1-2 days Time of Disposition: 12:33
[2020-03-14 11:55] LABS: ALT 14 U/L (4-49); AST 27 U/L (17-59); African American GFR (CKD) >90 (>60 ml/min/1.73 sqM); Albumin 3.9 g/dL (3.5-5.0); Alkaline Phosphatase 81 U/L (38-126); Anion Gap 5 mmol/L; Blood Urea Nitrogen 8 mg/dL (9-20); Calcium 8.8 mg/dL (8.4-10.2); Carbon Dioxide 28 mmol/L (22-30); Chloride 107 mmol/L (98-107); Glucose 102 mg/dL (74-99); Magnesium 1.8 mg/dL (1.6-2.3); Non-African American GFR(CKD) >90 (>60 ml/min/1.73 sqM); Potassium 3.8 mmol/L (3.5-5.1); Sodium 140 mmol/L (137-145); Total Bilirubin 0.5 mg/dL (0.2-1.3); Total Protein 6.6 g/dL (6.3-8.2)
[2020-03-14 12:50] VITALS: BP 134/87; PULSE 64; TEMP 98.7
== END 2020-03-14 12:41 | disposition home or self-care (01) ==
LOC: EC 11:00
DX: R64 Cachexia (principal); F41.9 Anxiety disorder, unspecified; F32.9 Major depressive disorder, single episode, unspecified; G89.29 Other chronic pain; M54.9 Dorsalgia, unspecified; F17.200 Nicotine dependence, unspecified, uncomplicated; Z79.891 Long term (current) use of opiate analgesic; Z79.899 Other long term (current) drug therapy; Z79.52 Long term (current) use of systemic steroids; Z86.73 Personal history of transient ischemic attack (TIA), and cerebral infarction without residual deficits; Z98.84 Bariatric surgery status
CPT/HCPCS: 36415; 80053; 83735; 85025; 96360; 99284

== ENCOUNTER → 2020-09-06 | Outpatient (CLI) | payer MEDICARE, OTHER | END | disposition home or self-care (01) | LOC: LABWHC1 16:02 | PROVIDERS: ATTEND Family Medicine | DX: Z20.822 Contact with and (suspected) exposure to COVID-19 (principal); R06.02 Shortness of breath | CPT/HCPCS: U0003; C9803; 87498; 87502; 87634; 87798 ==

== ENCOUNTER → 2020-11-23 | Outpatient (CLI) | payer MEDICARE, OTHER | END | disposition home or self-care (01) ==

== ENCOUNTER → 2021-03-02 | Outpatient (CLI) | payer MEDICARE, OTHER ==
--- NOTE | 2021-03-03 21:30 | EEG ---
ELECTROENCEPHALOGRAM REPORT PROCEDURE DATE: 03/02/2021. ELECTROENCEPHALOGRAM (EEG) REPORT: TECHNIQUE: A routine 18-channel EEG was performed with video using the 10/20 electrode placement system. HISTORY: Vision loss followed by headaches. Additional history includes tremoring of the hands. CURRENT MEDICATIONS: Sertraline, Voltaren, bupropion, lidocaine patch, atorvastatin, baclofen, omeprazole, hydrocodone, morphine, albuterol, Zofran, Fioricet and others. STUDY DURATION: 27 minutes. FINDINGS: BACKGROUND: The background activity consisted of 8-9 hertz rhythmic waveforms symmetrically distributed through both posterior quadrants. ACTIVATION Hyperventilation: Not performed. Photic stimulation: Symmetric driving seen. Sleep: None. ABNORMALITIES: None. IMPRESSION: Normal EEG. No epileptiform activity was present. No seizures were recorded. MMODL / IJN: [id number] /
== END ==
LOC: NEUROMAIN 10:16
PROVIDERS: ATTEND Psychiatry & Neurology Neurology
DX: G43.109 Migraine with aura, not intractable, without status migrainosus (principal); Z86.73 Personal history of transient ischemic attack (TIA), and cerebral infarction without residual deficits; F17.200 Nicotine dependence, unspecified, uncomplicated
CPT/HCPCS: 95816

== ENCOUNTER → 2021-06-01 | Outpatient (CLI) | payer MEDICARE, OTHER ==
--- NOTE | 2021-06-01 14:34 | XR ---
EXAMINATION TYPE: XR chest 2V DATE OF EXAM: 06/01/2021 COMPARISON: 02/18/2018 TECHNIQUE: PA and lateral views submitted. HISTORY: Cough FINDINGS: Hyperexpansion is noted and there is apical pleural thickening greater on the right. There is a new a gunner of consolidation left lower lobe. Chronic appearing compression fractures mid to lower thoracic s pine. Multilevel hypertrophic and degenerative changes seen. Heart size normal. Atherosclerotic harrison e aorta. IMPRESSION: 1. COPD with left lower lobe infiltrate appears new correlate for pneumonia.
== END | disposition home or self-care (01) ==
LOC: RADXRMAIN 14:18
PROVIDERS: ATTEND Family Medicine
DX: J44.0 Chronic obstructive pulmonary disease with (acute) lower respiratory infection (principal)
CPT/HCPCS: 71046

== ENCOUNTER → 2021-07-06 | Outpatient (CLI) | payer MEDICARE, OTHER ==
--- NOTE | 2021-07-06 13:47 | MR ---
EXAMINATION TYPE: MR angio head wo con DATE OF EXAM: 07/06/2021 COMPARISON: None HISTORY: Recurrent TIAs TECHNIQUE: Time of flight images focusing on the [place] were performed without contrast. FINDINGS: There is no sizable aneurysm sac, vascular malformation stenosis or segmental occlusion wit hin the anterior or posterior circulation intracranially. IMPRESSION: No significant abnormality seen.
--- NOTE | 2021-07-06 13:51 | MR ---
EXAMINATION TYPE: MR brain wo/w con DATE OF EXAM: 07/06/2021 COMPARISON: None HISTORY: Recurrent TIAs TECHNIQUE: Multiplanar, multisequence images of the brain and brainstem is performed without and with IV contras t. FINDINGS: Diffusion weighted images demonstrate no evidence of a recent infarct or other diffusion ab normality. There is no extra-axial fluid collection or significant white matter signal abnormality. The ventricular system and cisternal spaces are normal in size and appearance. The brain volume is age appropriate. Midline structures demonstrate normal morphology. The craniocervical junction appears within normal limits. Post contrast images demonstrate no abnormal enhancement. The dural venous sinuses appear pa tent. The intraorbital contents are normal and symmetric. There are moderate chronic inflammatory darin nges in the left maxillary sinus. IMPRESSION: Chronic sinusitis, left maxillary sinus with no other significant abnormality seen
== END | disposition home or self-care (01) ==
LOC: RADMRIMAIN 12:38
PROVIDERS: ATTEND Psychiatry & Neurology Neurology
DX: J32.9 Chronic sinusitis, unspecified (principal); Z86.73 Personal history of transient ischemic attack (TIA), and cerebral infarction without residual deficits
CPT/HCPCS: 70544; 70553; A9585

== ENCOUNTER → 2022-04-05 | Outpatient (CLI) | payer MEDICARE, OTHER ==
[2022-04-05 18:58] LABS: Prostate Specific Antigen 0.8 ng/mL (0.00-3.50)
== END | disposition home or self-care (01) ==
LOC: LABWHC1 10:53
PROVIDERS: ATTEND Family Medicine
DX: Z12.5 Encounter for screening for malignant neoplasm of prostate (principal); F41.8 Other specified anxiety disorders; F41.9 Anxiety disorder, unspecified
CPT/HCPCS: 36415; 82175; 82390; 82525; 82570; 82607; 83655; 83825; 84153; 84207; 84443; 84630